=== PATIENT | male | born 1995 | race Caucasian/White ===

== ENCOUNTER 2021-03-25 18:49 | Inpatient (IN) | payer OTHER ==
[~2021-03-25] VITALS: Ht 172.7 cm; Wt 70.5 kg
[2021-03-25 21:04] LABS: HEMATOCRIT 48.7 % (42.0-52.0); HEMOGLOBIN 16.7 g/dl (13.5-17.5); MEAN CORPUSCULAR HEMOGLOBIN 31.3 pg (27.0-33.0); MEAN CORPUSCULAR HGB CONC 34.3 g/dl (32.0-36.5); MEAN CORPUSCULAR VOLUME 91.2 fl (80.0-96.0); PLATELET COUNT, AUTOMATED 143 10^3/uL (150-450); RED BLOOD COUNT 5.34 10^6/uL (4.30-6.10); WHITE BLOOD COUNT 3.8 10^3/uL (4.0-10.0)
[2021-03-25 21:32] LABS: AMPHETAMINES LEVEL URINE NEGATIVE (NEGATIVE); BARBITURATES URINE NEGATIVE (NEGATIVE); BENZODIAZEPINES URINE NEGATIVE (NEGATIVE); CANNABINOIDS URINE NEGATIVE (NEGATIVE); COCAINE METABOLITE URINE NEGATIVE (NEGATIVE); METHADONE URINE NEGATIVE (NEGATIVE); OPIATES URINE NEGATIVE (NEGATIVE); PHENCYCLIDINE URINE NEGATIVE (NEGATIVE)
[2021-03-25 21:41] LABS: ACETAMINOPHEN LEVEL < 2.0 UG/ML (10.0-30.0); ALBUMIN 4.5 GM/DL (3.2-5.2); ALT/SGPT 34 U/L (12-78); BILIRUBIN,DIRECT 0.2 MG/DL (0.0-0.2); BILIRUBIN,TOTAL 0.6 MG/DL (0.2-1.0); BLOOD UREA NITROGEN 8 MG/DL (7-18); CARBON DIOXIDE LEVEL 27 MEQ/L (21-32); CHLORIDE LEVEL 104 MEQ/L (98-107); CREATININE FOR GFR 1.05 MG/DL (0.70-1.30); ETHYL ALCOHOL (ETHANOL) 0.487 % (0.000-0.010); GLOMERULAR FILTRATION RATE > 60.0 (>60); GLUCOSE, FASTING 102 MG/DL (70-100); POTASSIUM SERUM 3.6 MEQ/L (3.5-5.1); SALICYLATE LEVEL < 1.7 MG/DL (5.0-30.0); SODIUM LEVEL 144 MEQ/L (136-145); THYROID STIMULATING HORMONE 0.627 uIU/ML (0.358-3.740); TOTAL PROTEIN 7.8 GM/DL (6.4-8.2)
[2021-03-26] MEDS ORDERED: LORazepam 2 MG TAB PO PRN (07:05)
[2021-03-26] MEDS ORDERED: ONDANSETRON 4 MG ORAL DISINTEGRATING TAB PO ONE (08:55)
[2021-03-26] MEDS ORDERED: FOLIC ACID 1 MG TAB PO SCH (09:00)
[2021-03-26] MEDS ORDERED: MULTIVITAMINS/MINERALS THERAP 1 TAB PO SCH (09:00)
[2021-03-26] MEDS ORDERED: THIAMINE 100 MG TAB PO SCH (09:00)
[2021-03-26] MEDS: NICOTINE 21MG/24HR 1 EA TRANSDERMAL TD SCH (09:00)
[2021-03-26] MEDS: FOLIC ACID 1 MG TAB PO SCH (09:00)
--- NOTE | 2021-03-26 10:14 | ECGEPIP ---
[facility] - ED Test Date: 2021-03-25 Pat Name: CHERYL PETER Department: Room: - Gender: Male Linoleum Tile Floor Layer: ALYSON : 1995 Requested By: DREW Leiva Order Number: [id number] Reading MD: Elin Schroeder Measurements Intervals [place] Rate: 91 P: 72 IN: 142 QRS: 76 QRSD: 106 T: 49 QT: 380 QTc: 467 Interpretive Statements Normal sinus rhythm Incomplete right bundle branch block No prior Electronically Signed on 03-26-2021 10:14:35 EDT by Elin Schroeder
[2021-03-26] MEDS ORDERED: OXAZEPAM 15 MG CAP PO ONE (11:05)
[2021-03-26] MEDS ORDERED: HOME MED LIST COMPLETE! XX SCH (11:10)
--- NOTE | 2021-03-26 14:59 | MHIPNPDOC ---
[facility] Progress Note Progress Note DATE OF SERVICE: 03/26/21 She presented by PSA, meets criteria for involuntary admission. 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 Police were called and was brought in to the ED. Vital Signs Vital Signs Date Time Temp Pulse Resp B/P (MAP) Pulse Ox O2 Delivery O2 Flow Rate FiO2 03/26/21 14:34 147/79 03/26/21 14:33 97.2 75 18 98 Room Air Laboratory Data 24H Labs Laboratory Tests 2 03/25/21 20:33: Nucleated Red Blood Cells % (auto) 0.0, Anion Gap 13, Glomerular Filtration Rate > 60.0, Calcium Level 9.0, Total Bilirubin 0.6, Direct Bilirubin 0.2, Aspartate Amino Transf (AST/SGOT) 33, Alanine Aminotransferase (ALT/SGPT) 34, Alkaline Phosphatase 66, Total Protein 7.8, Albumin 4.5, Albumin/Globulin Ratio 1.4, Thyroid Stimulating Hormone (TSH) 0.627, Salicylates Level < 1.7L, Acetaminophen Level < 2.0L, Ethyl Alcohol Level 0.487H 03/25/21 20:34: Urine Opiates Screen NEGATIVE, Urine Methadone Screen NEGATIVE, Urine Barbiturates Screen NEGATIVE, Urine Phencyclidine Screen NEGATIVE, Urine Amphetamines Screen NEGATIVE, Urine Benzodiazepines Screen NEGATIVE, Urine Cocaine Metabolite Screen NEGATIVE, Urine Cannabinoids Screen NEGATIVE CBC/BMP Laboratory Tests 03/25/21 20:33 Current Medications Current Medications Medications (Trade) Dose Ordered Sig/Jhon Route PRN Reason Start Time Stop Time Status Last Admin Dose Admin Folic Acid (Folic Acid) 1 mg DAILY PO 03/26/21 09:00 Home Med (Home Med List Complete!) ASDIRECTED XX 03/26/21 11:10 03/26/21 11:09 DC Lorazepam (Ativan) 2 mg ASDIRECTED PRN PO SEE PROTOCOL 03/26/21 07:05 Multivitamins (Theragram-M) 1 tab DAILY PO 03/26/21 09:00 Thiamine HCl (Thiamine HCl) 100 mg BID PO 03/26/21 09:00 03/29/21 08:59 Allergies Coded Allergies: No Known Allergies (Unverified , 03/26/21) MOY LIM MD Mar 26, 2021 14:59
[2021-03-26] MEDS ORDERED: ACETAMINOPHEN TAB 650MG DOSE (2X325MG) PO PRN (15:00)
[2021-03-26] MEDS ORDERED: MOM 30ML SUSPENSION UDC PO PRN (15:00)
[2021-03-26] MEDS ORDERED: MAALOX 30 ML SUSP *UDC PO PRN (15:00)
[2021-03-26] MEDS ORDERED: traZODone 50 MG TAB PO PRN (15:00)
[2021-03-26 16:36] LABS: RSV AMPLIFICATION NEGATIVE (NEGATIVE)
[2021-03-26 17:48] VITALS: BP 158/84
[2021-03-26 17:57] VITALS: BP 158/84
[2021-03-26] MEDS: LORazepam 2 MG TAB PO PRN ×2 (18:05→22:21)
[2021-03-26 20:18] VITALS: BP 144/86
[2021-03-26 22:17] VITALS: BP 137/70
[2021-03-26] MEDS: THIAMINE 100 MG TAB PO SCH (22:22)
[2021-03-27] VITALS (8 sets, daily range): BP systolic 130–162; BP diastolic 60–91
[2021-03-27] MEDS: MULTIVITAMINS/MINERALS THERAP 1 TAB PO SCH (09:49)
[2021-03-27] MEDS: THIAMINE 100 MG TAB PO SCH ×2 (09:50→21:46)
[2021-03-27] MEDS: NICOTINE 21MG/24HR 1 EA TRANSDERMAL TD SCH (09:50)
[2021-03-27] MEDS: FOLIC ACID 1 MG TAB PO SCH (09:50)
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
[2021-03-27] MEDS: SERTRALINE HCL 25 MG TABLET PO SCH (11:33)
[2021-03-27] MEDS: busPIRone 5 MG TAB PO SCH ×2 (11:35→21:46)
--- NOTE | 2021-03-27 15:57 | HPEPDOC ---
[facility] Medical History & Physical Date of Admission Mar 26, 2021 Date of Service: Mar 27, 2021 History and Physical Chief complaint: Who presented to ER with suicidal ideation History of present illness: Patient is 25-year-old male with a past medical history of anxiety and depression who presented to the ER with suicidal ideation. Patient was admitted to the inpatient mental health unit under the psychiatrists service. Hospital services consulted for medical screening evaluation. Patient was seen and examined in the exam room. He denied any headache, nausea, vomiting, chest pain, shortness breath, palpitations, abdominal pain, diarrhea, constipation, or urinary discomfort. Patient denies any recent fevers or chills. Reports his appetite was poor previously but has had improvement. He has reported some weight loss. Past Medical History: Anxiety Depression Past Surgical History: Reported right ankle surgery approximately 7 years ago Allergies: See below Medications: See below Family History: - Family history consistent with mental health illness Social History: - Denies the use of illicit drugs; patient reports that he uses a vape; also uses alcohol - Denies recent travel or sick contacts - Lives alone - Occupation; he is in the [employer] Review of Systems: 10 point review of systems complete, all negative otherwise stated in HPI Physical exam: - Vitals: BP [135/60], HR [65], RR [20], Sat [98%RA], Temp [98.5F] - General: Sitting up in chair, Speaking in full sentences, AAOx3 - HEENT: NC, AT, PERRLA - CVS: RRR, +S1S2, - Murmurs / rubs / gallops - Lungs: Fair air entry bilaterally, No appreciable wheezing / rales / rhonchi - Abdomen: Soft, Non-distended, Non-tender - Extremities: No lower extremity edema, No calf tenderness - Neuro: No focal motor or sensory deficit - Skin: No visible rashes Labs: See below Imaging: See below EKG: See below Assessment and Plan: Suicidal ideation - Patient has a history of depression, anxiety - He has been admitted to inpatient mental health unit under the care of psychiatry - Currently being managed by psychiatry No significant past medical history DVT prophylaxis - Will c/w early ambulation Female correctional captain was present throughout the duration of his history and physical examination Thank you for this consultation. Hospitalist service will now sign off; please reconsult as needed.. Vital Signs Vital Signs Date Time Temp Pulse Resp B/P (MAP) Pulse Ox O2 Delivery O2 Flow Rate FiO2 03/27/21 14:00 66 153/86 03/27/21 06:30 98.5 20 98 Room Air Home Medications No Active Prescriptions or Reported Meds Allergies Coded Allergies: No Known Allergies (Unverified , 03/26/21) KAREN PARSONS MD Mar 27, 2021 15:57
[2021-03-28] VITALS (7 sets, daily range): BP systolic 104–162; BP diastolic 87–112
[2021-03-28] MEDS: SERTRALINE HCL 25 MG TABLET PO SCH (08:44)
[2021-03-28] MEDS: THIAMINE 100 MG TAB PO SCH ×2 (08:44→20:12)
[2021-03-28] MEDS: FOLIC ACID 1 MG TAB PO SCH (08:44)
[2021-03-28] MEDS: busPIRone 5 MG TAB PO SCH ×2 (08:44→20:12)
[2021-03-28] MEDS: MULTIVITAMINS/MINERALS THERAP 1 TAB PO SCH (08:44)
[2021-03-28] MEDS: NICOTINE 21MG/24HR 1 EA TRANSDERMAL TD SCH (08:45)
[2021-03-28] MEDS: LORazepam 2 MG TAB PO PRN ×2 (12:38→20:12)
--- NOTE | 2021-03-28 18:37 | MHIPN ---
[facility] PROGRESS NOTE DATE: 03/28/2021 The patient states, "I'm doing all right." He says that he is not having any suicidal thoughts today. Admits that he had some vague suicidal thoughts prior to admission, but he says he really had no intent. MENTAL STATUS EXAMINATION: He is alert and oriented times three. Eye contact is very good. He is verbally spontaneous. No formal thought disorder noted. Mood is good. Affect full range and appropriate. He is not psychotic, suicidal, homicidal. Concentration is fair. Memory intact. Insight and judgment are poor. DIAGNOSES: 1. Generalized anxiety disorder. 2. Alcohol use disorder, severe. TREATMENT PLAN: We will continue to monitor the patient for continued elevation and stabilization of mood and resolution of suicidal ideation.
[2021-03-29] VITALS (12 sets, daily range): BP systolic 120–195; BP diastolic 67–108
[2021-03-29] MEDS: SERTRALINE HCL 25 MG TABLET PO SCH (09:25)
[2021-03-29] MEDS: THIAMINE 100 MG TAB PO SCH (09:26)
[2021-03-29] MEDS: busPIRone 5 MG TAB PO SCH (09:26)
[2021-03-29] MEDS: MULTIVITAMINS/MINERALS THERAP 1 TAB PO SCH (09:26)
[2021-03-29] MEDS: FOLIC ACID 1 MG TAB PO SCH (09:26)
[2021-03-29] MEDS: NICOTINE 21MG/24HR 1 EA TRANSDERMAL TD SCH (09:28)
[2021-03-29] MEDS: LORazepam 2 MG TAB PO PRN ×2 (14:03→17:55)
[2021-03-29] MEDS ORDERED: OXAZEPAM 15 MG CAP PO ONE ×2 (14:30→19:00)
[2021-03-29 15:32] LABS: BASO % 0.4 % (0.0-1.0); EOS % 0.3 % (0.0-3.0); HEMATOCRIT 48.3 % (42.0-52.0); HEMOGLOBIN 16.3 g/dl (13.5-17.5); LYMPH % 13.5 % (24.0-44.0); MEAN CORPUSCULAR HEMOGLOBIN 31.3 pg (27.0-33.0); MEAN CORPUSCULAR HGB CONC 33.7 g/dl (32.0-36.5); MEAN CORPUSCULAR VOLUME 92.7 fl (80.0-96.0); MONO # 0.7 10^3/uL (0.0-0.8); MONO % 9.7 % (2.0-8.0); NEUTROPHILS # 5.5 10^3/uL (1.5-8.5); NEUTROPHILS % 75.8 % (36.0-66.0); PLATELET COUNT, AUTOMATED 156 10^3/uL (150-450); RED BLOOD COUNT 5.21 10^6/uL (4.30-6.10); WHITE BLOOD COUNT 7.3 10^3/uL (4.0-10.0)
[2021-03-29 15:49] LABS: ALBUMIN 4.5 GM/DL (3.2-5.2); ALT/SGPT 31 U/L (12-78); BILIRUBIN,TOTAL 0.8 MG/DL (0.2-1.0); BLOOD UREA NITROGEN 15 MG/DL (7-18); CALCIUM LEVEL 9.5 MG/DL (8.5-10.1); CARBON DIOXIDE LEVEL 27 MEQ/L (21-32); CHLORIDE LEVEL 103 MEQ/L (98-107); CREATININE FOR GFR 1.18 MG/DL (0.70-1.30); GLOMERULAR FILTRATION RATE > 60.0 (>60); GLUCOSE, FASTING 197 MG/DL (70-100); SODIUM LEVEL 139 MEQ/L (136-145); TOTAL PROTEIN 7.8 GM/DL (6.4-8.2)
--- NOTE | 2021-03-29 17:00 | IPNPDOC ---
Text Note Date of Service The patient was seen on 03/29/21. NOTE Subjective: Patient is 25-year-old male with a PMHx of Anxiety / Depression who presented to the ER with suicidal ideation. Patient was admitted to the [facility] mental health unit under the psychiatrists service. Hospital services consulted for medical screening evaluation. Was called to evaluate patient because of elevated blood pressure and tremors. Patient was seen and examined at the bedside. On initial evaluation patient reported that he felt anxious. He denied any chest pain, nausea, vomiting, abdominal pain, diarrhea, or urinary discomfort. On subsequent evaluation about 2 hours after receiving Serax, he reports that he feels relatively better, and that he doesn't feel as anxious and is no longer having palpitations. Objective: Vitals (See below) General: Lying in bed, appears comfortable, AAOx3 HEENT: NC, AT CVS: +S1S2 Lungs: Fair air entry b/l, no wheezing, rales or rhonchi Abdomen: Soft, nondistended and nontender Extremities: No edema Assessment and plan: Possible alcohol withdrawal - Patient has reported feeling anxious earlier this afternoon and has some resolution with Serax - Possible hallucinations were reported - Patient remains slightly hypertensive; has had improvement after Serax - Lab work reviewed - Will continue to follow vitals o3dsreq - c/w Serax [id number]; will taper down as tolerated - c/w CIWA protocol with Ativan - If patient continues to experience worsening will consider moving him to the inpatient medical side for IV management - Called and updated Psychiatry, Dr. Duran about plan of care Suicidal ideation - Patient has a history of depression, anxiety - He has been admitted to inpatient mental health unit under the care of nas julien - Currently being managed by psychiatry No significant past medical history DVT prophylaxis - c/w early ambulation Female caustic purification operator was present throughout the duration of this examination VS,Rohan, I+O VS, Zackarye, I+O Laboratory Tests 03/29/21 14:20 Vital Signs Date Time Temp Pulse Resp B/P (MAP) Pulse Ox O2 Delivery O2 Flow Rate FiO2 03/29/21 16:43 98 162/102 03/29/21 06:51 98.7 18 99 Room Air KAREN PARSONS MD Mar 29, 2021 17:00
[2021-03-29] MEDS ORDERED: busPIRone 10 MG TAB PO SCH (21:00)
[2021-03-30] MEDS ORDERED: OXAZEPAM 15 MG CAP PO SCH ×2
[2021-03-30] MEDS ORDERED: SERTRALINE HCL 50 MG TAB PO SCH (09:00)
--- NOTE | 2021-04-24 15:27 | MHDSPDOC ---
[facility] Discharge Summary Discharge Summary DATE OF ADMISSION: Mar 26, 2021 at 15:00 DATE OF DISCHARGE: Mar 29, 2021 at 20:56 DISCHARGE DIAGNOSES: Delirium tremens REASON FOR ADMISSION: see H and P CONSULTANTS INVOLVED: hospitalist team TREATMENT AND PROGRESS ON THE UNIT : Patient developed delirium in context bdz withdrawal and was sent to ICU, had been started on CIWA protocol and sertraline, olanzapine for acute psychosis. HOSPITAL COURSE: Patient was sent to ICU for delirium overnight DISCHARGE ASSESSMENT: Patient was sent to ICU for delirium overnight MENTAL STATUS EXAMINATION ON DISCHARGE: Not done, patient was sent to ICU overnight MEDICATIONS ON DISCHARGE: see medication reconciliation PLAN/FOLLOWUP ARRANGEMENTS: sent to ICU for delirium The amount of time spent in the coordination of care for this patient was approximately 0 minutes. ETOH/Disorder Med Rx ETOH/DRUG DISORDER RX: N/A Medications Scheduled Buspirone HCl (Buspirone HCl) 10 Mg Tablet, 10 MG PO BID, #30 Folic Acid (Folic Acid) 1 Mg Tablet, 1 MG PO DAILY, #15 Multivitamins (Thera M Plus Tablet) 1 Each Tablet, 1 TAB PO DAILY, #15 Naltrexone HCl (Naltrexone HCl) 50 Mg Tablet, 50 MG PO DAILY for alcohol cravings, #7 Oxazepam (Oxazepam) 15 Mg Capsule, 30 MG PO Q8H, #6 tid x 1 day then twice x 1 day then once x 1 day then stop. Sertraline HCl (Sertraline HCl) 50 Mg Tablet, 50 MG PO DAILY for mood, #7 Thiamine Hcl (Vitamin B-1) 100 Mg Tablet, 100 MG PO BID, #30 Scheduled PRN Ramelteon (Ramelteon) 8 Mg Tablet, 8 MG PO QHS PRN for INSOMNIA, #7 Trazodone HCl (Trazodone HCl) 50 Mg Tablet, 100 MG PO QHSP PRN for INSOMNIA, #7 Allergies Coded Allergies: No Known Allergies (Unverified , 03/26/21) MOY LIM MD Apr 24, 2021 15:27
== END 2021-03-29 20:56 | disposition short-term general hospital (02) | DRG 880 ==
LOC: M ED 18:49 → M ED INP 03-26 15:00 → M PSY 03-26 16:57
PROVIDERS: ADMIT Student in an Organized Health Care Education/Training Program; ATTEND Student in an Organized Health Care Education/Training Program
DX: F41.1 Generalized anxiety disorder (principal); R45.851 Suicidal ideations; F10.232 Alcohol dependence with withdrawal with perceptual disturbance; F17.290 Nicotine dependence, other tobacco product, uncomplicated; Z63.5 Disruption of family by separation and divorce; Z20.822 Contact with and (suspected) exposure to COVID-19; Z81.8 Family history of other mental and behavioral disorders

== ENCOUNTER 2021-03-29 19:45 | Inpatient (IN) | payer OTHER ==
[~2021-03-29] VITALS: Ht 172.7 cm; Wt 77.9 kg
[2021-03-29] MEDS ORDERED: LORazepam 2 MG/ML VIAL IV PRN ×2 (20:20)
[2021-03-29 21:00] VITALS: BP 141/110
[2021-03-29] MEDS ORDERED: MULTIVITAMIN -ADULT INJECTION 10 ML, THIAMINE INJection 100 MG, FOLIC ACID 1 MG in NS 1... IV ONE (21:00)
[2021-03-29] MEDS: LORazepam 2 MG/ML VIAL IV SCH (21:51)
[2021-03-29 22:00] VITALS: BP 133/87
--- NOTE | 2021-03-29 23:24 | HPEPDOC ---
General Date of Admission Mar 29, 2021 at 20:45 Date of Service: Mar 29, 2021 Chief Complaint The patient is a 25-year-old male admitted with a reason for visit of Delirium Tremens. Source: Patient History of Present Illness Layo Cunningham is a 25-year-old male with no significant medical history who presented to hospital with suicidal ideation on March 25 and was admitted to [facility]. Patient seen evening March 29 with reported tremors and anxiety. Patient endorsed EtOH use "about a pint of whiskey nightly or every other night". Patient found to be tachycardic, hypertensive, mildly diaphoretic, tremulous and endorsing episode of visual hallucination and auditory hallucination. Patient is oriented x3 and laying in bed. He is able to report he is in no pain and feels better after dose of Ativan and Serax. Pt denies laughlin, sinus congestion, sore throat, productive cough, sob, palpitations, chest pain, n/v/d, or abdominal pain. Patient denies present suicidal or homicidal ideations. Given patient at high risk for worsening withdrawal and consideration of DTs will be escalated to PCU for monitoring and CIWA protocol, however given bed availability will be placed in ICU hold. Home Medications No Active Prescriptions or Reported Meds Allergies Coded Allergies: No Known Allergies (Unverified , 03/26/21) Past Medical History Medical History Denies significant medical history Surgical History Endorses right ankle orthopedic surgery 7 years ago Family History Significant Family History: No pertinent family hx Social History * Smoker: other (Vape 1 cartridge per week) Alcohol: heavy ("About a pint of whiskey nightly or every other night") Drugs: denies Recent Travel/Sick Contacts: Denies: Recent travel, Recent sick contacts Psychosocial History: Depression, Suicidal thoughts Patient active duty A-FIB/CHADSVASC A-FIB History Current/History of A-Fib/PAF?: No Current PO Anticoag Therapy: No Review of Systems Constitutional: Denies: Chills, Fever, Night Sweats Eyes: Denies: Pain, Vision change ENT: Denies: Head Aches, Ear Pain, Dysphagia Skin: Reports: Other (David complexion and diaphoresis); Denies: Rash, Lesions, Breakdown Pulmonary: Denies: Dyspnea, Cough Cardiovascular: Reports: Palpitations; Denies: Chest Pain, Orthopnea, Paroxysmal Noc. Dyspnea, Lt Headedness Gastrointestinal: Denies: Nausea, Vomiting, Abdominal Pain, Diarrhea Genitourinary: Denies: Dysuria, Frequency, Incontinence, Retention Hematologic: Denies: Bruising, Bleeding Excessively Musculoskeletal: Denies: Neck Pain, Back Pain, Joint Pain, Muscle Pain, Spasms Neurological: Denies: Weakness, Numbness, Change in speech, Confusion Psych: Reports: Anxiety, Depression, Thoughts of Self Harm, Other Psych (Episode of auditory and visual hallucination); Denies: Memory Issues Physical Examination General Exam: Positive: Alert, Cooperative, No Acute Distress, Other (Mildly diaphoretic and ready complexion) Eye Exam: Positive: PERRLA, Conjunctiva & lids normal, EOMI; Negative: Sclera icteric ENT Exam: Positive: Atraumatic, Mucous membr. moist/pink, Pharynx Normal Neck Exam: Positive: Supple; Negative: JVD, thyromegaly Chest Exam: Positive: Clear to auscultation, Normal air movement Heart Exam: Positive: Tachycardic, Regular Rhythm, Normal S1, Normal S2; Negative: Murmurs, Rubs Telemetry: Positive: Sinus, Tachycardia Abdomen Exam: Positive: Normal bowel sounds, Soft; Negative: Tenderness, Hepatospenomegaly Extremity Exam: Positive: Normal pulses; Negative: Clubbing, Cyanosis, Edema Skin Exam: Positive: Nl turgor and temperature; Negative: Breakdown, Lesion Neuro Exam: Positive: Normal Gait, Normal Speech, Cranial Nerves 3-12 NL, Reflexes 2+ Psych Exam: Positive: Mental status NL, Anxiety, Oriented x 3 Vital Signs Vital Signs Date Time Temp Pulse Resp B/P (MAP) Pulse Ox O2 Delivery O2 Flow Rate FiO2 03/29/21 21:00 103 141/110 03/29/21 21:00 98.3 16 97 Room Air Assessment/Plan 1. Delirium tremens in setting of ETOH withdrawal -Monitor pt, Tele -Seizure precautions -Supportive care, symptom management: hydrate as needed-we will give banana bag -CIWA protocol, serax added -Thiamine, folate, multivitamin daily -De-escalation techniques accordingly. -Labs for electrolyte derangements, replete as needed 2. Tachycardia and hypertension in setting of above: -Proceed with CIWA protocol. -Consider further heart rate and BP controlling adjuncts pending clinical course. 3. Suicidal ideation in pt with CHINEDU: - Patient has a history of depression, anxiety - Continue to monitor; suicidal precautions -One-on-one observation per policy -Will continue medications ordered by psych -Dr. Duran with psychiatry notified of patient's escalation of care. Placed consult for admitting psychiatrist and on-call in order for further a.m. recommendations from covering psych provider 4. Nicotine use: Patient endorses vaping at home. Patient clear to auscultation. Consider nicotine patch pending course; given elevated heart rate and blood pressure at this time will hold off due to vasoconstrictive effects. Encourage cessation. DVT prophylaxis: Freya score low. Early ambulation; teds and sequentials if patient tolerates CODE STATUS: Full code Disposition planning: Pending medical improvement Plan / VTE VTE Prophylaxis Ordered?: Yes MIR DOMINGUEZ NP Mar 29, 2021 22:25
[2021-03-29] MEDS ORDERED: ACETAMINOPHEN TAB 650MG DOSE (2X325MG) PO PRN (23:35)
[2021-03-29] MEDS ORDERED: MAALOX 30 ML SUSP *UDC PO PRN (23:35)
[2021-03-30] VITALS (7 sets, daily range): BP systolic 118–142; BP diastolic 62–88
[2021-03-30] MEDS: OXAZEPAM 15 MG CAP PO SCH ×5 (00:10→23:00)
[2021-03-30 00:18] LABS: BASO % 0.5 % (0.0-1.0); EOS # 0.1 10^3/uL (0.0-0.5); EOS % 0.8 % (0.0-3.0); HEMATOCRIT 45.1 % (42.0-52.0); HEMOGLOBIN 15.3 g/dl (13.5-17.5); LYMPH # 1.5 10^3/uL (1.5-5.0); LYMPH % 22.5 % (24.0-44.0); MEAN CORPUSCULAR HEMOGLOBIN 31.5 pg (27.0-33.0); MEAN CORPUSCULAR HGB CONC 33.9 g/dl (32.0-36.5); MEAN CORPUSCULAR VOLUME 92.8 fl (80.0-96.0); MONO # 0.9 10^3/uL (0.0-0.8); MONO % 13.4 % (2.0-8.0); NEUTROPHILS # 4.1 10^3/uL (1.5-8.5); NEUTROPHILS % 62.3 % (36.0-66.0); PLATELET COUNT, AUTOMATED 147 10^3/uL (150-450); RED BLOOD COUNT 4.86 10^6/uL (4.30-6.10); WHITE BLOOD COUNT 6.6 10^3/uL (4.0-10.0)
[2021-03-30 00:46] LABS: ALBUMIN 3.9 GM/DL (3.2-5.2); ALT/SGPT 27 U/L (12-78); BILIRUBIN,TOTAL 0.5 MG/DL (0.2-1.0); BLOOD UREA NITROGEN 15 MG/DL (7-18); CALCIUM LEVEL 9.1 MG/DL (8.5-10.1); CARBON DIOXIDE LEVEL 26 MEQ/L (21-32); CHLORIDE LEVEL 105 MEQ/L (98-107); CREATININE FOR GFR 0.98 MG/DL (0.70-1.30); GLOMERULAR FILTRATION RATE > 60.0 (>60); GLUCOSE, FASTING 95 MG/DL (70-100); MAGNESIUM LEVEL 2.2 MG/DL (1.8-2.4); POTASSIUM SERUM 4.6 MEQ/L (3.5-5.1); SODIUM LEVEL 139 MEQ/L (136-145); TOTAL PROTEIN 6.9 GM/DL (6.4-8.2)
[2021-03-30] MEDS: LORazepam 2 MG/ML VIAL IV SCH ×3 (03:45→18:04)
[2021-03-30 08:10] LABS: BASO % 0.7 % (0.0-1.0); EOS # 0.1 10^3/uL (0.0-0.5); EOS % 1.3 % (0.0-3.0); HEMATOCRIT 45.9 % (42.0-52.0); HEMOGLOBIN 15.4 g/dl (13.5-17.5); LYMPH % 18.1 % (24.0-44.0); MEAN CORPUSCULAR HEMOGLOBIN 31.3 pg (27.0-33.0); MEAN CORPUSCULAR HGB CONC 33.6 g/dl (32.0-36.5); MEAN CORPUSCULAR VOLUME 93.3 fl (80.0-96.0); MONO # 0.7 10^3/uL (0.0-0.8); MONO % 12.7 % (2.0-8.0); NEUTROPHILS # 3.6 10^3/uL (1.5-8.5); NEUTROPHILS % 66.8 % (36.0-66.0); PLATELET COUNT, AUTOMATED 136 10^3/uL (150-450); RED BLOOD COUNT 4.92 10^6/uL (4.30-6.10); WHITE BLOOD COUNT 5.4 10^3/uL (4.0-10.0)
[2021-03-30 08:44] LABS: ALBUMIN 3.7 GM/DL (3.2-5.2); ALT/SGPT 27 U/L (12-78); BILIRUBIN,TOTAL 1.1 MG/DL (0.2-1.0); BLOOD UREA NITROGEN 11 MG/DL (7-18); CALCIUM LEVEL 8.8 MG/DL (8.5-10.1); CARBON DIOXIDE LEVEL 29 MEQ/L (21-32); CHLORIDE LEVEL 109 MEQ/L (98-107); CREATININE FOR GFR 0.88 MG/DL (0.70-1.30); GLOMERULAR FILTRATION RATE > 60.0 (>60); GLUCOSE, FASTING 96 MG/DL (70-100); MAGNESIUM LEVEL 2.3 MG/DL (1.8-2.4); POTASSIUM SERUM 5.5 MEQ/L (3.5-5.1); SODIUM LEVEL 141 MEQ/L (136-145); TOTAL PROTEIN 6.6 GM/DL (6.4-8.2)
[2021-03-30] MEDS ORDERED: LORazepam 2 MG/ML VIAL As Ordered ONE ×2 (09:01→18:01)
[2021-03-30] MEDS: THIAMINE 100 MG TAB PO SCH ×2 (09:02→20:28)
[2021-03-30] MEDS: SERTRALINE HCL 25 MG TABLET PO SCH (09:02)
[2021-03-30] MEDS: MULTIVITAMINS/MINERALS THERAP 1 TAB PO SCH (09:02)
[2021-03-30] MEDS: busPIRone 10 MG TAB PO SCH ×2 (09:02→20:29)
[2021-03-30] MEDS: FOLIC ACID 1 MG TAB PO SCH (09:03)
--- NOTE | 2021-03-30 10:45 | MHIPN ---
[facility] PROGRESS NOTE DATE: 03/29/2021 HISTORY OF PRESENT ILLNESS: Patient today tells me "I'm doing great." He admits; however, that he is still feeling depressed. He says his mood is about 5/10 where the closer to 10 is the most depressed. He says he has been depressed for the past 1 and 1/2 years since he has been in the [employer]. Also of note was that his vitals increased enough last night that he was given and he met the CIWA criteria to receive Ativan. Today he was seen by Dr. Aguiar, who called me to say that if the patient's vitals continue to go up or he shows any further evidence of DTs that he would be transferred to the Medical Floor which was indeed what ultimately ended up happening. MENTAL STATUS EXAM: This patient is alert and oriented times 3. Eye contact is good. Psychomotor activity is decreased. There is no formal thought disorder. Patient said that his mood was "all right." His affect is flat. He is not psychotic, suicidal or homicidal. Concentration and memory is poor. Insight and judgment is poor. DIAGNOSES: 1. Generalized anxiety disorder. 2. Alcohol use disorder, severe. TREATMENT PLAN: The patient is basically transferred to the Medical Service to get stabilized as he is believed to be delirium tremens due to alcohol withdrawal. CRISTÓBAL
--- NOTE | 2021-03-30 11:28 | IPNPDOC ---
Text Note Date of Service The patient was seen on 03/30/21. NOTE Subjective: Patient is 25-year-old male with a PMHx of Anxiety / Depression who presented to the ER with suicidal ideation. Patient was admitted to the [facility] unit under the psychiatrists service initially. On 03/29, patient began to experience alcohol withdrawal symptoms and failed to improve with oral medications. He was subsequently transferred to the medical service for further intervention. Patient was seen and examined at the bedside. Clinically appears to be doing relatively well. Denies any nausea, vomiting, chest pain, shortness breath, palpitations, abdominal pain, diarrhea, or discomfort with urination. Patient does not appear to be as tremulous as yesterday. Objective: Vitals (See below) General: Patient sitting up in bed, does not appear to be in any acute distress, is awake, alert. He is oriented to person, place and time HEENT: Atraumatic and normocephalic CVS: +S1S2 Lungs: There appears to be fair air entry bilaterally without any evidence of crackles, wheezing, rhonchi Abdomen: Soft, nondistended and nontender Extremities: No edema Assessment and plan: Alcohol withdrawal - Patient was transferred to the medical service because of worsening withdrawal symptoms yesterday - This morning; patient denies any hallucinations currently reports his anx iousness as improved - He does not appear to be as tremulous - Hemodynamically stable; blood pressure and heart rate have improved - Lab work reviewed - c/w Serax q6h and Ativan IV; will re-evaluate this afternoon to reduce frequency of scheduled Ativan - c/w CIWA protocol with Ativan; has been scoring <8 since transfer to medical service Hyperkalemia - Will repeat lab work for 12pm - If still elevated will provide reduction agents Alcohol dependence - c/w Thiamine / Folate / MVI Suicidal ideation - Patient has a history of depression and anxiety - c/w Buspirone and Sertraline - c/w One to one sitter / Suicidal precautions - Psychiatry on consultation; appreciate their input Nicotine dependence - Advised cessation DVT prophylaxis - c/w TEDs/Sequentials Disposition: - Pending clinical improvement - Transition to [facility] once medically cleared VS,Fishbone, I+O VS, Fishbone, I+O Laboratory Tests 03/29/21 23:49 03/30/21 07:45 Vital Signs Date Time Temp Pulse Resp B/P (MAP) Pulse Ox O2 Delivery O2 Flow Rate FiO2 03/30/21 08:00 96.9 74 18 137/79 (98) 99 Room Air I&O- Last 24 Hours up to 6 AM 03/30/21 05:59 Intake Total 100 ml Balance 100 ml KAREN PARSONS MD Mar 30, 2021 11:28
[2021-03-30 13:06] LABS: BLOOD UREA NITROGEN 11 MG/DL (7-18); CALCIUM LEVEL 9.3 MG/DL (8.5-10.1); CARBON DIOXIDE LEVEL 24 MEQ/L (21-32); CHLORIDE LEVEL 106 MEQ/L (98-107); CREATININE FOR GFR 0.83 MG/DL (0.70-1.30); GLOMERULAR FILTRATION RATE > 60.0 (>60); GLUCOSE, FASTING 99 MG/DL (70-100); POTASSIUM SERUM 4.6 MEQ/L (3.5-5.1); SODIUM LEVEL 137 MEQ/L (136-145)
[2021-03-30] MEDS ORDERED: RAMELTEON 8 MG TAB (ROZEREM) PO PRN (22:20)
[2021-03-30] MEDS ORDERED: LORazepam 0.5 MG TAB PO ONE (22:20)
[2021-03-31] VITALS: BP 120/66
[2021-03-31] MEDS: LORazepam 2 MG/ML VIAL IV SCH (00:15)
[2021-03-31 04:00] VITALS: BP 129/64
[2021-03-31] MEDS: OXAZEPAM 15 MG CAP PO SCH (05:40)
[2021-03-31 06:11] LABS: ALBUMIN 3.8 GM/DL (3.2-5.2); ALT/SGPT 26 U/L (12-78); BILIRUBIN,TOTAL 0.9 MG/DL (0.2-1.0); BLOOD UREA NITROGEN 13 MG/DL (7-18); CALCIUM LEVEL 9.5 MG/DL (8.5-10.1); CARBON DIOXIDE LEVEL 26 MEQ/L (21-32); CHLORIDE LEVEL 105 MEQ/L (98-107); CREATININE FOR GFR 1.04 MG/DL (0.70-1.30); GLOMERULAR FILTRATION RATE > 60.0 (>60); GLUCOSE, FASTING 97 MG/DL (70-100); MAGNESIUM LEVEL 2.4 MG/DL (1.8-2.4); POTASSIUM SERUM 4.3 MEQ/L (3.5-5.1); SODIUM LEVEL 137 MEQ/L (136-145); TOTAL PROTEIN 7.1 GM/DL (6.4-8.2)
[2021-03-31 06:24] LABS: BASO # 0.1 10^3/uL (0.0-0.2); BASO % 0.8 % (0.0-1.0); EOS # 0.1 10^3/uL (0.0-0.5); EOS % 1.5 % (0.0-3.0); HEMATOCRIT 45.2 % (42.0-52.0); HEMOGLOBIN 15.2 g/dl (13.5-17.5); LYMPH # 1.4 10^3/uL (1.5-5.0); LYMPH % 23.9 % (24.0-44.0); MEAN CORPUSCULAR HEMOGLOBIN 31.3 pg (27.0-33.0); MEAN CORPUSCULAR HGB CONC 33.6 g/dl (32.0-36.5); MONO # 0.8 10^3/uL (0.0-0.8); MONO % 13.9 % (2.0-8.0); NEUTROPHILS # 3.6 10^3/uL (1.5-8.5); NEUTROPHILS % 59.6 % (36.0-66.0); PLATELET COUNT, AUTOMATED 144 10^3/uL (150-450); RED BLOOD COUNT 4.86 10^6/uL (4.30-6.10)
[2021-03-31] MEDS ORDERED: LORazepam 2 MG TAB PO PRN (07:05)
[2021-03-31 08:00] VITALS: BP 134/60
[2021-03-31 09:25] VITALS: BP 112/70
[2021-03-31] MEDS: busPIRone 10 MG TAB PO SCH (09:39)
[2021-03-31] MEDS: SERTRALINE HCL 25 MG TABLET PO SCH (09:39)
[2021-03-31] MEDS: FOLIC ACID 1 MG TAB PO SCH (09:39)
[2021-03-31] MEDS: MULTIVITAMINS/MINERALS THERAP 1 TAB PO SCH (09:39)
[2021-03-31] MEDS: THIAMINE 100 MG TAB PO SCH (09:39)
[2021-03-31] MEDS ORDERED: FOLI1TAB11 PO (10:20)
[2021-03-31] MEDS ORDERED: SERT25TA21 PO (10:20)
[2021-03-31] MEDS ORDERED: THIA100TA PO (10:20)
[2021-03-31] MEDS ORDERED: BUSP10TA PO (10:20)
[2021-03-31] MEDS ORDERED: OXAZ15CA4 PO (10:23)
[2021-03-31] MEDS ORDERED: VITMTA PO (10:23)
--- NOTE | 2021-03-31 13:07 | DS.PDOC ---
Discharge Summary General Date of Admission Mar 29, 2021 at 20:45 Date of Discharge 03/31/21 Discharge Summary PROCEDURES PERFORMED DURING STAY: [None]. DISCHARGE DIAGNOSES: Alcohol withdrawal. Generalized anxiety disorder Alcohol use disorder Depression with suicidal ideation. 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 While in inpatient mental health unit he went into alcohol withdrawal with features of delirium tremens and was transferred to [facility]. He was managed for alcohol withdrawal and is now doing better. Patient was continued on buspirone and sertraline for his anxiety and depression. Patient is now discharged back to [facility] for management of his psychiatric issues Alcohol withdrawal resolved will taper serax. Hyperkalemia resolved Alcohol dependence c/w Thiamine / Folate / MVI Depression/Suicidal ideation/ generalized anxiety disorder. c/w Buspirone and Sertraline Nicotine dependence Advised cessation DISCHARGE MEDICATIONS: Please see below. ALLERGIES: Please see below. PHYSICAL EXAMINATION ON DISCHARGE: VITAL SIGNS: Please see below. General: Patient sitting up in bed, does not appear to be in any acute distress, is awake, alert. He is oriented to person, place and time HEENT: Atraumatic and normocephalic CVS: +S1S2 Lungs: There appears to be fair air entry bilaterally without any evidence of crackles, wheezing, rhonchi Abdomen: Soft, nondistended and nontender Extremities: No edema LABORATORY DATA: Please see below. ACTIVITY: [As tolerated]. DIET: Regular DISCHARGE PLAN: [facility] DISCHARGE INSTRUCTIONS: Referral to alcohol rehab program. Follow up with Psych in 1 week DISCHARGE CONDITION: [Stable]. TIME SPENT ON DISCHARGE:35 minutes. Vital Signs/I&Os Vital Signs Date Time Temp Pulse Resp B/P (MAP) Pulse Ox O2 Delivery O2 Flow Rate FiO2 03/31/21 09:25 98.5 76 16 112/70 (84) 98 Room Air I&O- Last 24 Hours up to 6 AM 03/31/21 06:00 Intake Total 780 ml Balance 780 ml Laboratory Data Labs 24H Laboratory Tests 2 03/30/21 12:21: Anion Gap 7L, Glomerular Filtration Rate > 60.0, Calcium Level 9.3 03/31/21 05:03: Anion Gap 6L, Glomerular Filtration Rate > 60.0, Calcium Level 9.5, Magnesium Level 2.4, Total Bilirubin 0.9, Aspartate Amino Transf (AST/SGOT) 9, Alanine Aminotransferase (ALT/SGPT) 26, Alkaline Phosphatase 48, Total Protein 7.1, Albumin 3.8, Albumin/Globulin Ratio 1.2 03/31/21 05:59: Immature Granulocyte % (Auto) 0.3, Neutrophils (%) (Auto) 59.6, Lymphocytes (%) (Auto) 23.9L, Monocytes (%) (Auto) 13.9H, Eosinophils (%) (Auto) 1.5, Basophils (%) (Auto) 0.8, Neutrophils # (Auto) 3.6, Lymphocytes # (Auto) 1.4L, Monocytes # (Auto) 0.8, Eosinophils # (Auto) 0.1, Basophils # (Auto) 0.1, Nucleated Red Blood Cells % (auto) 0.0 CBC/BMP Laboratory Tests 03/30/21 12:21 03/31/21 05:03 03/31/21 05:59 Discharge Medications Scheduled Buspirone HCl (Buspirone HCl) 10 Mg Tablet, 10 MG PO BID Folic Acid (Folic Acid) 1 Mg Tablet, 1 MG PO DAILY Multivitamins (Thera M Plus Tablet) 1 Each Tablet, 1 TAB PO DAILY Oxazepam (Oxazepam) 15 Mg Capsule, 30 MG PO Q8H tid x 1 day then twice x 1 day then once x 1 day then stop. Sertraline HCl (Sertraline HCl) 25 Mg Tablet, 25 MG PO DAILY Thiamine Hcl (Vitamin B-1) 100 Mg Tablet, 100 MG PO BID Allergies Coded Allergies: No Known Allergies (Unverified , 03/26/21) Francia Andrews MD Mar 31, 2021 10:58
[2021-03-31 14:00] VITALS: BP 128/72
[2021-03-31] MEDS ORDERED: OXAZEPAM 15 MG CAP PO SCH (14:00)
== END 2021-03-31 19:56 | DRG 898 ==
LOC: M ED INP 20:45 → M PCU 20:46 → M MSPAV 03-31 09:16
PROVIDERS: ADMIT Family Medicine; ATTEND Internal Medicine Nephrology
DX: F10.231 Alcohol dependence with withdrawal delirium (principal); R45.851 Suicidal ideations; F41.1 Generalized anxiety disorder; F10.232 Alcohol dependence with withdrawal with perceptual disturbance; F17.290 Nicotine dependence, other tobacco product, uncomplicated; R00.0 Tachycardia, unspecified; E87.5 Hyperkalemia; F32.A Depression, unspecified

== ENCOUNTER 2021-03-31 13:25 | Inpatient (IN) | payer OTHER ==
[~2021-03-31] VITALS: Ht 172.7 cm; Wt 77.9 kg
[~2021-03-31 13:25] MED LIST: BUSP10TA PO; FOLI1TAB11 PO; OXAZ15CA4 PO; SERT25TA21 PO; THIA100TA PO; VITMTA PO
[2021-03-31] MEDS ORDERED: IBUPROFEN 400MG TAB PO PRN (13:45)
[2021-03-31] MEDS ORDERED: ACETAMINOPHEN TAB 650MG DOSE (2X325MG) PO PRN (13:45)
[2021-03-31] MEDS ORDERED: MAALOX 30 ML SUSP *UDC PO PRN (13:45)
[2021-03-31] MEDS ORDERED: MOM 30ML SUSPENSION UDC PO PRN (13:45)
[2021-03-31] MEDS ORDERED: RAMELTEON 8 MG TAB (ROZEREM) PO PRN (19:35)
[2021-03-31 20:21] VITALS: BP 128/72
[2021-03-31] MEDS: traZODone 50 MG TAB PO PRN (20:46)
[2021-03-31] MEDS: THIAMINE 100 MG TAB PO SCH (20:46)
[2021-03-31] MEDS: busPIRone 10 MG TAB PO SCH (20:46)
[2021-03-31] MEDS: OXAZEPAM 15 MG CAP PO SCH (21:50)
[2021-04-01] MEDS: OXAZEPAM 15 MG CAP PO SCH ×2 (05:36→19:30)
[2021-04-01 06:32] VITALS: BP 111/56
[2021-04-01] MEDS: SERTRALINE HCL 25 MG TABLET PO SCH (09:44)
[2021-04-01] MEDS: NALTREXONE 50 MG TAB PO SCH (09:44)
[2021-04-01] MEDS: MULTIVITAMINS/MINERALS THERAP 1 TAB PO SCH (09:44)
[2021-04-01] MEDS: FOLIC ACID 1 MG TAB PO SCH (09:44)
[2021-04-01] MEDS: THIAMINE 100 MG TAB PO SCH ×2 (09:44→19:29)
[2021-04-01] MEDS: busPIRone 10 MG TAB PO SCH ×2 (09:44→19:29)
--- NOTE | 2021-04-01 11:33 | HPEPDOC ---
General Date of Admission Mar 31, 2021 at 20:00 Date of Service: Apr 01, 2021 Chief Complaint The patient is a 25-year-old male admitted with a reason for visit of Major Depessive Do. 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 While in inpatient mental health unit he went into alcohol withdrawal with features of delirium tremens and was transferred to [facility]. He was managed for alcohol withdrawal in inpatient medicine and was transferred back to [facility] on 03/31/2021 after resolution of his withdrawal. He is now in [facility] for management of his depression. He was examined the same for medical history and physical. He did not have any complaints this morning. Home Medications Scheduled Buspirone HCl (Buspirone HCl) 10 Mg Tablet, 10 MG PO BID Folic Acid (Folic Acid) 1 Mg Tablet, 1 MG PO DAILY Multivitamins (Thera M Plus Tablet) 1 Each Tablet, 1 TAB PO DAILY Oxazepam (Oxazepam) 15 Mg Capsule, 30 MG PO Q8H tid x 1 day then twice x 1 day then once x 1 day then stop. Sertraline HCl (Sertraline HCl) 25 Mg Tablet, 25 MG PO DAILY Thiamine Hcl (Vitamin B-1) 100 Mg Tablet, 100 MG PO BID Allergies Coded Allergies: No Known Allergies (Unverified , 03/26/21) Past Medical History Medical History Generalized anxiety disorder Depression with suicidal ideation Surgical History Reported right ankle surgery Family History Significant Family History: Other (Mental health illness) Social History * Smoker: current smoker, other (Vape) Alcohol: heavy A-FIB/CHADSVASC A-FIB History Current/History of A-Fib/PAF?: No Review of Systems Constitutional: Denies: Chills, Fever, Night Sweats Eyes: Denies: Pain, Vision change ENT: Denies: Head Aches, Ear Pain, Dysphagia Skin: Denies: Rash, Lesions, Breakdown Pulmonary: Denies: Dyspnea, Cough Cardiovascular: Denies: Chest Pain, Palpitations, Orthopnea, Paroxysmal Noc. Dyspnea, Lt Headedness Gastrointestinal: Denies: Nausea, Vomiting, Abdominal Pain, Diarrhea Musculoskeletal: Denies: Neck Pain, Back Pain, Joint Pain, Muscle Pain, Spasms Neurological: Denies: Weakness, Numbness, Change in speech, Confusion Physical Examination General Exam: Positive: Alert, No Acute Distress Eye Exam: Positive: PERRLA, Conjunctiva & lids normal, EOMI; Negative: Sclera icteric ENT Exam: Positive: Atraumatic, Mucous membr. moist/pink, Pharynx Normal Chest Exam: Positive: Clear to auscultation, Normal air movement Heart Exam: Positive: Rate Normal, Regular Rhythm, Normal S1, Normal S2; Negative: Murmurs, Rubs Abdomen Exam: Positive: Normal bowel sounds, Soft; Negative: Tenderness, Hepatospenomegaly Extremity Exam: Positive: Normal pulses; Negative: Clubbing, Cyanosis, Edema Vital Signs Vital Signs Date Time Temp Pulse Resp B/P (MAP) Pulse Ox O2 Delivery O2 Flow Rate FiO2 04/01/21 06:32 98.1 62 14 111/56 (74) 96 Room Air Assessment/Plan Alcohol use disorder status post alcohol withdrawal Continue Serax taper c/w Thiamine / Folate / MVI Depression/Suicidal ideation/ generalized anxiety disorder. As per psychiatry Nicotine dependence Advised cessation Plan / VTE VTE Prophylaxis Ordered?: No (Freely ambulatory) Francia Andrews MD Apr 01, 2021 11:33
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
[2021-04-01 16:17] VITALS: BP 140/70
[2021-04-01] MEDS: traZODone 50 MG TAB PO PRN (19:28)
[2021-04-02 06:50] VITALS: BP 120/60
[2021-04-02] MEDS: FOLIC ACID 1 MG TAB PO SCH (08:48)
[2021-04-02] MEDS: THIAMINE 100 MG TAB PO SCH ×2 (08:48→20:30)
[2021-04-02] MEDS: NALTREXONE 50 MG TAB PO SCH (08:48)
[2021-04-02] MEDS: SERTRALINE HCL 25 MG TABLET PO SCH (08:48)
[2021-04-02] MEDS: busPIRone 10 MG TAB PO SCH ×2 (08:48→20:30)
[2021-04-02] MEDS: OXAZEPAM 15 MG CAP PO SCH ×2 (08:49→20:30)
[2021-04-02] MEDS: MULTIVITAMINS/MINERALS THERAP 1 TAB PO SCH (08:49)
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
[2021-04-02] MEDS ORDERED: HOME MED LIST COMPLETE! XX SCH (11:35)
[2021-04-02 18:40] VITALS: BP 143/77
[2021-04-02] MEDS: traZODone 50 MG TAB PO PRN (21:16)
[2021-04-03 06:28] VITALS: BP 131/60
[2021-04-03] MEDS: OXAZEPAM 15 MG CAP PO SCH ×2 (08:38→20:19)
[2021-04-03] MEDS: busPIRone 10 MG TAB PO SCH ×2 (08:38→20:19)
[2021-04-03] MEDS: FOLIC ACID 1 MG TAB PO SCH (08:39)
[2021-04-03] MEDS: MULTIVITAMINS/MINERALS THERAP 1 TAB PO SCH (08:39)
[2021-04-03] MEDS: THIAMINE 100 MG TAB PO SCH ×2 (08:39→20:19)
[2021-04-03] MEDS: SERTRALINE HCL 50 MG TAB PO SCH (08:39)
[2021-04-03] MEDS: NALTREXONE 50 MG TAB PO SCH (08:39)
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
[2021-04-03] MEDS ORDERED: TRAZ-252 PO (14:38)
[2021-04-03] MEDS ORDERED: SERT50TA29 PO (14:38)
[2021-04-03] MEDS ORDERED: NALT50TA4 PO (14:38)
[2021-04-03] MEDS ORDERED: RAME8TAB2 PO (14:38)
[2021-04-03 18:25] VITALS: BP 155/81
[2021-04-03] MEDS: traZODone 50 MG TAB PO PRN (20:19)
[2021-04-04 06:19] VITALS: BP 135/67
[2021-04-04] MEDS: MULTIVITAMINS/MINERALS THERAP 1 TAB PO SCH (08:12)
[2021-04-04] MEDS: SERTRALINE HCL 50 MG TAB PO SCH (08:12)
[2021-04-04] MEDS: FOLIC ACID 1 MG TAB PO SCH (08:12)
[2021-04-04] MEDS: NALTREXONE 50 MG TAB PO SCH (08:12)
[2021-04-04] MEDS: busPIRone 10 MG TAB PO SCH (08:12)
[2021-04-04] MEDS: OXAZEPAM 15 MG CAP PO SCH ×2 (08:12→20:07)
[2021-04-04] MEDS: THIAMINE 100 MG TAB PO SCH ×2 (08:12→20:07)
[2021-04-04 16:34] VITALS: BP 134/72
[2021-04-04 18:30] LABS: RSV AMPLIFICATION NEGATIVE (NEGATIVE)
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
[2021-04-04] MEDS: traZODone 50 MG TAB PO PRN (20:07)
[2021-04-04] MEDS: busPIRone 5 MG TAB PO SCH (20:07)
[2021-04-04] MEDS: MIRTAZAPINE 7.5MG PER 1/2 TABLET PO SCH (20:07)
[2021-04-05 06:29] VITALS: BP 127/61
[2021-04-05] MEDS: THIAMINE 100 MG TAB PO SCH ×2 (08:00→20:57)
[2021-04-05] MEDS: SERTRALINE HCL 50 MG TAB PO SCH (08:00)
[2021-04-05] MEDS: busPIRone 5 MG TAB PO SCH ×2 (08:00→20:57)
[2021-04-05] MEDS: FOLIC ACID 1 MG TAB PO SCH (08:00)
[2021-04-05] MEDS: OXAZEPAM 15 MG CAP PO SCH ×2 (08:00→20:57)
[2021-04-05] MEDS: MULTIVITAMINS/MINERALS THERAP 1 TAB PO SCH (08:00)
[2021-04-05] MEDS: NALTREXONE 50 MG TAB PO SCH (08:00)
[2021-04-05 13:26] VITALS: BP 127/61
[2021-04-05 16:16] VITALS: BP 115/74
[2021-04-05] MEDS: traZODone 50 MG TAB PO PRN (20:57)
[2021-04-05] MEDS: MIRTAZAPINE 7.5MG PER 1/2 TABLET PO SCH (21:00)
[2021-04-06 06:39] VITALS: BP 137/65
[2021-04-06] MEDS: FOLIC ACID 1 MG TAB PO SCH (08:15)
[2021-04-06] MEDS: MULTIVITAMINS/MINERALS THERAP 1 TAB PO SCH (08:15)
[2021-04-06] MEDS: busPIRone 5 MG TAB PO SCH (08:15)
[2021-04-06] MEDS: THIAMINE 100 MG TAB PO SCH (08:15)
[2021-04-06] MEDS: OXAZEPAM 15 MG CAP PO SCH (08:15)
[2021-04-06] MEDS: NALTREXONE 50 MG TAB PO SCH (08:15)
[2021-04-06] MEDS: SERTRALINE HCL 50 MG TAB PO SCH (08:15)
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
== END 2021-04-06 11:23 | disposition home or self-care (01) | DRG 880 ==
LOC: M PSY 20:00
PROVIDERS: ADMIT Psychiatry & Neurology Psychiatry; ATTEND Student in an Organized Health Care Education/Training Program
DX: F41.1 Generalized anxiety disorder (principal); F10.20 Alcohol dependence, uncomplicated; F17.290 Nicotine dependence, other tobacco product, uncomplicated; Z63.5 Disruption of family by separation and divorce; Z79.899 Other long term (current) drug therapy; Z20.822 Contact with and (suspected) exposure to COVID-19